=== PATIENT | male | born 1985 | race Caucasian/White ===

== ENCOUNTER 2024-09-01 15:29 | Observation (INO) | payer BC ==
[~2024-09-01] VITALS: Ht 177.8 cm; Wt 82.2 kg
[2024-09-01 16:54] LABS: Albumin, Blood 3.1 g/dL (3.4-5.0); Albumin/Globulin Ratio 0.6 (0.8-1.8); Bilirubin, Total 0.7 mg/dL (0.1-1.0); Bun/Creatinine Ratio 14.8 (12.0-20.0); Calcium, Blood 9.8 mg/dL (8.5-10.1); Creatinine, Blood 0.88 mg/dL (0.60-1.20); Globulin, Blood 4.9 g/dL (2.2-4.0); Potassium, Blood 3.7 mmol/L (3.5-5.5)
[2024-09-01] MEDS ORDERED: Acetaminophen 325 MG TABLET PO ONE (22:20)
[2024-09-01] MEDS ORDERED: NS 1,000 ML IV SCH (22:25)
[2024-09-01] MEDS ORDERED: Vancomycin HCL 1,750 MG in NS 500 ML IV ONE (22:35)
[2024-09-01 23:11] LABS: International Normalized Ratio 1.09; Prothrombin Time Results 11.6 Sec (9.7-11.5)
[2024-09-01 23:47] LABS: Influenza A, PCR NEGATIVE (NEGATIVE); Influenza B, PCR NEGATIVE (NEGATIVE); Resp Syncytial Virus, PCR NEGATIVE (NEGATIVE); SARS-Cov-2 (COVID-19) PCR, MMC NEGATIVE (NEGATIVE)
[2024-09-02] VITALS (11 sets, daily range): BP systolic 119–154; BP diastolic 67–92
[2024-09-02] MEDS ORDERED: FLU VACC TS2024-25(6MOS UP)/PF 45 MCG/0.5 ML SYRINGE IM SCH (01:00)
[2024-09-02] MEDS ORDERED: Acetaminophen 325 MG TABLET PO PRN (01:05)
[2024-09-02] MEDS ORDERED: FentaNYL Citrate 50 MCG/ML 2 ML Injection IV PRN (04:00)
[2024-09-02] MEDS ORDERED: Piperacillin/Tazobactam Sod 4.5 GM in NS 100 ML IV SCH (04:30)
[2024-09-02] MEDS ORDERED: NS 250 ML IV PRN (05:00)
--- NOTE | 2024-09-02 05:14 | NUR ---
ADMIT NOTE 38 YR OLD MALE ADMITTED TO FLOOR FROM THE ED WITH DX OF PERIRECTAL ABSCESS. UP AD JESSI. UNABLE TO LAY ON BACK DUE TO PAIN CAUSED. ALERT AND ORIENTED. ABLE TO REPOSITION SELF WITHOUT ASSIST. ORIENTED TO USE OF CALL LIGHT. NPO. ORIENTED TO USE OF CALL LIGHT AND BED CONTROL. RAILS UP X 2 AND BED IN LOW POSITION FOR SAFETY. IV ANTIBIOTICS INFUSING. WILL CONT TO MONITOR
[2024-09-02 05:43] LABS: BASOPHILS ABSOLUTE AUTO 0.03 K/mm3 (0.00-0.23); BASOPHILS PERCENT AUTO 0 % (0-2); EOSINOPHILS ABSOLUTE AUTO 0.07 K/mm3 (0.00-0.68); EOSINOPHILS PERCENT AUTO 1 % (0-6); IMMATURE GRAN ABSOLUTE AUTO 0.04 K/mm3 (0.00-0.10); IMMATURE GRAN PERCENT AUTO 0 % (0-1); LYMPHOCYTES ABSOLUTE AUTO 1.47 K/mm3 (0.84-5.20); LYMPHOCYTES PERCENT AUTO 16 % (21-46); MONOCYTES ABSOLUTE AUTO 0.87 K/mm3 (0.16-1.47); MONOCYTES PERCENT AUTO 9 % (4-13); Mean Corpuscular HGB 30.1 pg (26.0-34.0); Mean Corpuscular HGB Conc 34.1 g/dL (31.5-36.5); Mean Corpuscular Volume 88 fL (80-100); NEUTROPHILS ABSOLUTE AUTO 6.73 K/mm3 (1.96-9.15); NEUTROPHILS PERCENT AUTO 73 % (41-73); Platelet Count 231 K/mm3 (150-400); RDW Coefficient Variation 12.1 % (11.7-14.2); RDW Standard Deviation 39.4 fL (35.1-46.3); Red Blood Cell Count 4.65 M/mm3 (4.30-5.90); White Blood Cell Count 9.21 K/mm3 (4.00-11.30)
[2024-09-02] MEDS ORDERED: Insulin Human Lispro 100 Units/ML 3ML Syringe SC SCH (06:00)
[2024-09-02 06:11] LABS: Albumin, Blood 2.7 g/dL (3.4-5.0); Albumin/Globulin Ratio 0.6 (0.8-1.8); Bilirubin, Total 0.7 mg/dL (0.1-1.0); Bun/Creatinine Ratio 9.6 (12.0-20.0); Calcium, Blood 9.3 mg/dL (8.5-10.1); Creatinine, Blood 0.73 mg/dL (0.60-1.20); Globulin, Blood 4.4 g/dL (2.2-4.0); Potassium, Blood 4.1 mmol/L (3.5-5.5); Total Protein, Blood 7.1 g/dL (6.4-8.2)
[2024-09-02] MEDS ORDERED: Insulin Regular 100 UNIT/ML 10ML Vial SC SCH (07:30)
[2024-09-02] MEDS ORDERED: FentaNYL Citrate 50 MCG/ML 2 ML Injection ONE (08:13)
[2024-09-02] MEDS ORDERED: Ondansetron HCl 2 MG / ML 2ML Vial ONE (08:13)
[2024-09-02] MEDS ORDERED: propofoL 20 ML IV ONE (08:13)
[2024-09-02] MEDS ORDERED: Dexamethasone Sod Phos 10 MG/ML 1ML VIAL ONE (08:13)
[2024-09-02] MEDS ORDERED: Lactated Ringer's 1,000 ML IV SCH (08:45)
[2024-09-02] MEDS ORDERED: Bupivacaine 0.5% HCl 5 MG/ML 30MLVIAL ONE (08:46)
[2024-09-02] MEDS ORDERED: Enoxaparin 40 MG/0.4 ML SYR SC SCH (09:00)
[2024-09-02] MEDS ORDERED: Sugammadex Sodium 200 MG/2ML SDV (100 MG/ML) ONE (09:34)
--- NOTE | 2024-09-02 10:25 | NUR ---
PATIENT BACK FROM OR, ACCOMPANIED BY MOTHER, CORY MAGALLON.
[2024-09-02] MEDS ORDERED: Vancomycin HCL 1,750 MG in NS 500 ML IV SCH (11:00)
[2024-09-02] MEDS ORDERED: AMOCLA875 PO (17:34)
[2024-09-02] MEDS ORDERED: VISBIOME 112.51 EACH PO (17:35)
--- NOTE | 2024-09-02 19:22 | NUR ---
DISCHARGE SUMMARY: A&Ox4. PLEASANT AND COOPERATIVE WITH CARE. CALLS APPROPRIATELY AND IS ABLE TO ADVOCATE NEEDS EFFECTIVELY. I&D DONE TODAY WITH PINROSE DRAIN PLACEMENT. PAIN MUCH IMPROVED AFTER PROCEDURE. NO FEVER, NAUSEA OR VOMITING. TOLERATING FOOD AND AMBULATING APPROPRIATELY. MEDS TO [facility]. INSTRUCTED TO ESTABLISH CARE WITH PCP IN NEXT 1-2 WEEKS. FOLLOW-UP WITH DR. FREDERICK, SURGEON, IN ONE WEEK. CALL OFFICE FOR FURTHER WOUND CARE INSTRUCTIONS IF Sx WORSEN OR DO NOT IMPROVE. THIS RN REMOVED IV. PATIENT LEFT FLOOR WITH DISCHARGE PACKET AND ALL BELONGINGS.
== END 2024-09-02 18:08 | disposition home or self-care (01) ==
LOC: ER 15:29 → MEDS 15:30
PROVIDERS: Family Medicine; Physician Assistant; Student in an Organized Health Care Education/Training Program; Surgery; ADMIT Internal Medicine
PROC: 3E0T3BZ Introduction of Anesthetic Agent into Peripheral Nerves and Plexi, Percutaneous Approach (ICD-10-PCS; principal; 2024-09-02 09:00)
PROC: 0D9P0ZZ Drainage of Rectum, Open Approach (ICD-10-PCS; principal; 2024-09-02 09:00)
DX: K61.1 Rectal abscess (principal); R65.20 Severe sepsis without septic shock; E87.20 Acidosis, unspecified; R73.9 Hyperglycemia, unspecified; E87.1 Hypo-osmolality and hyponatremia
CPT/HCPCS: 0241U; 36415; 74177; 80053; 82947; 83036; 83605; 84145; 85025; 85610; 85730; 87040; 87070; 87075; 87076; 87185; 87205; 96361; 96365-59; 96366; 96375; 99285-25; A9270; G0378; J1100; J2405; J2543; J2704; J3010; J3370; J7030; J7040; J7050; J7120; Q9967

== ENCOUNTER → 2024-09-01 | Outpatient (CLI) | payer BC ==
[~2024-09-01] MED LIST: AMOCLA875 PO; VISBIOME 112.51 EACH PO
[2024-09-01 13:31] LABS: BASOPHILS ABSOLUTE AUTO 0.04 K/mm3 (0.00-0.23); BASOPHILS PERCENT AUTO 0 % (0-2); EOSINOPHILS ABSOLUTE AUTO 0.09 K/mm3 (0.00-0.68); EOSINOPHILS PERCENT AUTO 1 % (0-6); Hematocrit 45.5 % (37.0-53.0); Hemoglobin 15.8 g/dL (13.5-17.5); IMMATURE GRAN ABSOLUTE AUTO 0.05 K/mm3 (0.00-0.10); IMMATURE GRAN PERCENT AUTO 0 % (0-1); LYMPHOCYTES PERCENT AUTO 18 % (21-46); MONOCYTES ABSOLUTE AUTO 0.94 K/mm3 (0.16-1.47); MONOCYTES PERCENT AUTO 8 % (4-13); Mean Corpuscular HGB 30.6 pg (26.0-34.0); Mean Corpuscular HGB Conc 34.7 g/dL (31.5-36.5); Mean Corpuscular Volume 88 fL (80-100); Mean Platelet Volume 9.7 fL (9.1-12.4); NEUTROPHILS ABSOLUTE AUTO 8.56 K/mm3 (1.96-9.15); NEUTROPHILS PERCENT AUTO 73 % (41-73); Platelet Count 260 K/mm3 (150-400); RDW Coefficient Variation 12.1 % (11.7-14.2); RDW Standard Deviation 39.1 fL (35.1-46.3); Red Blood Cell Count 5.17 M/mm3 (4.30-5.90); White Blood Cell Count 11.78 K/mm3 (4.00-11.30)
== END ==
LOC: LAB 13:28 → LAB SHORT 13:28
PROVIDERS: Physician Assistant
DX: R50.9 Fever, unspecified (principal)
CPT/HCPCS: 83605; 85025; 87040